=== PATIENT | male | born 1960 | race American Indian/Alaskan Native ===

== ENCOUNTER 2017-08-03 21:35 | Emergency (ER) | payer SELFPAY ==
[2017-08-03 22:33] LABS: Hematocrit 51.8 % (35.5-45.6); Hemoglobin 17.3 gm/dl (11.8-15.2); Mean Corpuscular HGB Conc 33 % (32-34); Mean Corpuscular Hemoglobin 31 pg (28-32); Mean Corpuscular Volume 94 fl (84-94); Platelet Count 235 K/mm3 (140-440); Red Blood Count 5.54 M/mm3 (3.65-5.03); Red Cell Distribution Width 14.2 % (13.2-15.2)
[2017-08-03] MEDS ORDERED: APRESOLINE IV ONE (22:40)
[2017-08-03] MEDS ORDERED: NACL 0.9% 1000 ML 1,000 ML IV ONE (22:40)
[2017-08-03] MEDS ORDERED: ZOFRAN IV ONE (22:40)
--- NOTE | 2017-08-03 22:46 | Emergency Department Report ---
HPI - General Chief Complaint: Weakness Time Seen by Provider: 08/03/17 22:12 - HPI HPI: The patient is a 56-year-old male with a history of hypertension, whom presents for evaluation of generalized weakness and gastroenteritis suggestive symptoms. The patient reports nausea, vomiting, and diarrhea since this morning, associated with severe lightheadedness as dizziness, exacerbated with standing up or exertion, improved with lying down and rests, also since this morning, 12 hours prior to my evaluation. The patient shares that he ate a landaverde melt from [email or web address] last night. The patient denies fever, headache, neck pain, paresthesias, focal motor weakness, blurry vision, ear pain, tinnitus, chest pain, hemoptysis, dyspnea, chest pain, cough, abdominal pain, confusion or altered mental status. ED Past Medical Hx - Past Medical History Hx Hypertension: Yes - Surgical History Additional Surgical History: cath cath - Social History Smoking Status: Former Smoker Substance Use Type: None - Medications Home Medications: Home Medications Medication Instructions Recorded Confirmed Last Taken Type Ondansetron [Zofran Odt] 8 mg PO TID PRN #20 tab.rapdis 08/28/14 Unknown Rx Penicillin Vk [Veetids TAB] 500 mg PO TID #20 tablet 08/28/14 07/19/16 Rx Meclizine [Antivert] 25 mg PO TID PRN #20 tablet 08/03/17 Unknown Rx Ondansetron [Zofran TAB] 4 mg PO Q8HR PRN #20 tablet 08/03/17 Unknown Rx ED Review of Systems ROS: Stated complaint: DIZZINESS Other details as noted in HPI Constitutional: reports dizziness denies: fever ENT: denies: throat or neck pain Respiratory: denies: cough, shortness of breath Cardiovascular: denies: chest pain Endocrine: denies unexplained weight loss or gain Gastrointestinal: denies: abdominal pain reports nausea Genitourinary: denies: dysuria Musculoskeletal: denies: leg swelling Skin: denies: rash Neurological: denies: headache Hematological/Lymphatic: denies: easy bleeding or easy bruising Psych: denies sadness or hopelessness Physical Exam - Physical Exam Vital Signs: Vital Signs 08/03/17 08/03/17 08/03/17 21:44 22:14 22:16 Temperature 98.3 F Pulse Rate 65 72 Respiratory 20 26 H Rate Blood Pressure 201/116 187/115 O2 Sat by Pulse 96 99 99 Oximetry 08/03/17 22:24 Temperature Pulse Rate Respiratory 18 Rate Blood Pressure O2 Sat by Pulse 99 Oximetry Physical Exam: General: well-nourished, well-developed, no acute distress Head: Normocephalic, atraumatic Eyes: normal sclera ENT: Mucous membranes are pale and dry Neck: No neck stiffness, no cervical adenopathy Respiratory: Breath sounds equal bilaterally, no wheezing, rales, or rhonchi Cardio: S1 and S2 present, no murmurs, rubs, gallops, capillary refill is delayed Abdomen: Normoactive bowel sounds, soft abdomen, no rigidity, no guarding or rebound tenderness Musc: No pitting edema Skin: No rash Neuro: no facial drooping, normal speech Psych: Normal affect ED Course Vital Signs 08/03/17 08/03/17 08/03/17 21:44 22:14 22:16 Temperature 98.3 F Pulse Rate 65 72 Respiratory 20 26 H Rate Blood Pressure 201/116 187/115 O2 Sat by Pulse 96 99 99 Oximetry 08/03/17 22:24 Temperature Pulse Rate Respiratory 18 Rate Blood Pressure O2 Sat by Pulse 99 Oximetry ED Medical Decision Making - Lab Data Result diagrams: 08/03/17 22:16 08/03/17 22:16 - Medical Decision Making The patient was seen and examined by myself. The patient is placed on a business liaison officer and continuous pulse ox. On initial evaluation, the patient was found to be in no distress. Evaluation orders were placed. The patient is given 1 L normal saline fluid bolus for treatment of dehydration, and IV Zofran for his nausea. Lab results reveal elevated RBC, hemoglobin, and hematocrit, consistent with hemoconcentration and exam findings of dehydration, and otherwise labs were grossly unremarkable. CT scan of the head is negative for acute intracranial disease process. The patient was given IV hydralazine for treatment of his hypertension. The patient was reevaluated and reported that their symptoms were markedly improved. The patient is stable for discharge with outpatient follow-up. The patient is given follow-up and return instructions. The patient expressed understanding and agreed with the plan. The patient is discharged in stable condition. Critical care attestation.: If time is entered above; I have spent that time in minutes in the direct care of this critically ill patient, excluding procedure time. ED Disposition Clinical Impression: Dehydration, Orthostatic dizziness, Hypertensive urgency, Nausea and vomiting in adult Disposition: DC-01 TO HOME OR SELFCARE Is pt being admited?: No Does the pt Need Aspirin: No Condition: Stable Instructions: Gastroenteritis (ED), Acute Nausea and Vomiting (ED), Chronic Hypertension (ED), Food Poisoning (ED), Hypertension (ED), Lightheadedness (ED) Prescriptions: Meclizine [Antivert] 25 mg PO TID PRN #20 tablet PRN Reason: Vertigo Ondansetron [Zofran TAB] 4 mg PO Q8HR PRN #20 tablet PRN Reason: Nausea Referrals: [facility] [Outside] - 3-5 Days Time of Disposition: 22:47
[2017-08-03 22:47] LABS: BUN/Creatinine Ratio 9; Blood Urea Nitrogen 9 mg/dL (9-20); Calcium 9.4 mg/dL (8.4-10.2); Hemolysis Index 11
[2017-08-03 23:14] LABS: Eosinophils % (Manual) 0 % (0.0-4.3); Ovalocytes Few; Total Cells Counted 100
--- NOTE | 2017-08-03 23:55 | Cat Scan Report ---
FINAL REPORT PROCEDURE: CT HEAD/BRAIN WO CON TECHNIQUE: Computerized tomography of the head was performed without contrast material. HISTORY: headache COMPARISON: No prior studies are available for comparison. FINDINGS: Skull and scalp: Normal. Paranasal sinuses: Normal. Ventricles and subarachnoid spaces: Normal. Cerebrum: No evidence of hemorrhage, acute infarction or mass. 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 Cerebellum and brainstem: No evidence of hemorrhage, acute infarction or mass. Vasculature: Normal. Comments: None. IMPRESSION: There is no evidence of an acute intracranial process. 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
[2017-08-04] MEDS ORDERED: NORMODYNE IV ONE (01:05)
[2017-08-04 03:24] VITALS: BP 143/91
[2017-08-04] MEDS ORDERED: ZOFRAN ODT ONE (03:28)
[2017-08-04] MEDS ORDERED: ZOFRAN ODT PO ONE (03:39)
== END 2017-08-04 03:39 | disposition home or self-care (01) ==
LOC: ED 21:35
DX: E86.0 Dehydration (principal); I16.0 Hypertensive urgency; I10 Essential (primary) hypertension; R42 Dizziness and giddiness; R11.2 Nausea with vomiting, unspecified; R19.7 Diarrhea, unspecified; Z87.891 Personal history of nicotine dependence; Z88.5 Allergy status to narcotic agent
CPT/HCPCS: 36415; 70450; 80048; 83880; 84484; 85007; 85025; 93005; 93010; 96361; 96374; 96375; 99284; J0360; J2405; J7030; Q0162

== ENCOUNTER 2019-04-24 19:35 | Emergency (ER) | payer SELFPAY ==
--- NOTE | 2019-04-24 20:43 | Event Note ---
ED Screening Note Date of service: 04/24/19 Time: 20:41 ED Screening Note: 58 y o male with pmh of HTN stopped taking meds x 1 year presents with bilateral leg swelling right greater than left This initial assessment/diagnostic orders/clinical plan/treatment(s) is/are subject to change based on patients health status, clinical progression and re- assessment by fellow clinical providers in the ED. Further treatment and workup at subsequent clinical providers discretion. Patient/guardian urged not to elope from the ED as their condition may be serious if not clinically assessed and managed. Initial orders include: labs
[2019-04-24 20:47] VITALS: BP 169/116
[2019-04-24 21:23] LABS: Basophils # (Auto) 0.1 K/mm3 (0.0-0.1); Basophils % (Auto) 0.7 % (0.0-1.8); Eosinophils # (Auto) 0.4 K/mm3 (0.0-0.4); Hematocrit 42.7 % (35.5-45.6); Hemoglobin 14.8 gm/dl (11.8-15.2); Lymphocytes # (Auto) 2.3 K/mm3 (1.2-5.4); Lymphocytes % (Auto) 18.5 % (13.4-35.0); Mean Corpuscular HGB Conc 35 % (32-34); Mean Corpuscular Volume 92 fl (84-94); Monocytes # (Auto) 0.8 K/mm3 (0.0-0.8); Monocytes % (Auto) 6.2 % (0.0-7.3); Platelet Count 215 K/mm3 (140-440); Red Blood Count 4.66 M/mm3 (3.65-5.03); Red Cell Distribution Width 14.6 % (13.2-15.2)
[2019-04-24 21:36] LABS: BUN/Creatinine Ratio 5; Blood Urea Nitrogen 6 mg/dL (9-20); Calcium 9.5 mg/dL (8.4-10.2); Hemolysis Index 7
--- NOTE | 2019-04-24 22:03 | Emergency Department Report ---
ED General Adult HPI - General Chief complaint: High BP Stated complaint: BLOOD PRESSURE Source: patient Mode of arrival: Ambulatory Limitations: No Limitations - History of Present Illness Initial comments: Is a pleasant 58-year-old male presents the emergency department the chief complaint of elevated blood pressure as well as bilateral lower extremity swelling for the past year. Patient states he had difficulty with insurance after he lost his job and has not been able to afford to go to the doctor or get his blood pressure checked or get his medications refilled. Per his chart review he had been on amlodipine and hydrochlorothiazide previously. Patient reports the swelling will start in his ankles and go up to the mid lower leg. He denies any abdominal swelling, shortness of breath, productive cough, orthopnea, fever, chills, night sweats, headache, dizziness, blurred vision chest pain, shortness of breath, or any other associated symptoms. - Related Data Previous Rx's Medication Instructions Recorded Last Taken Type Ondansetron [Zofran Odt] 8 mg PO TID PRN #20 tab.rapdis 08/28/14 Unknown Rx Penicillin Vk [Veetids TAB] 500 mg PO TID #20 tablet 08/28/14 07/19/16 Rx Meclizine [Antivert] 25 mg PO TID PRN #20 tablet 08/03/17 Unknown Rx Ondansetron [Zofran TAB] 4 mg PO Q8HR PRN #20 tablet 08/03/17 Unknown Rx amLODIPine 5 mg PO DAILY #31 tab 04/24/19 Unknown Rx hydroCHLOROthiazide [HCTZ] 25 mg PO QDAY #30 tablet 04/24/19 Unknown Rx Allergies Allergy/AdvReac Type Severity Reaction Status Date / Time codeine AdvReac Vomiting Verified 08/27/14 19:16 ED Review of Systems ROS: Stated complaint: BLOOD PRESSURE Other details as noted in HPI Comment: All other systems reviewed and negative Constitutional: denies: chills, fever Eyes: denies: eye pain, eye discharge, vision change ENT: denies: ear pain, throat pain Respiratory: denies: cough, shortness of breath, wheezing Cardiovascular: as per HPI, edema. denies: chest pain, palpitations Endocrine: no symptoms reported Gastrointestinal: denies: abdominal pain, nausea, diarrhea Genitourinary: denies: urgency, dysuria Musculoskeletal: denies: back pain, joint swelling, arthralgia Skin: denies: rash, lesions Neurological: denies: headache, weakness, paresthesias Psychiatric: denies: anxiety, depression Hematological/Lymphatic: denies: easy bleeding, easy bruising ED Past Medical Hx - Past Medical History Previous Medical History?: Yes Hx Hypertension: Yes - Surgical History Past Surgical History?: Yes Additional Surgical History: cath cath - Social History Smoking Status: Current Every Day Smoker Substance Use Type: None - Medications Home Medications: Home Medications Medication Instructions Recorded Confirmed Last Taken Type Ondansetron [Zofran Odt] 8 mg PO TID PRN #20 tab.rapdis 08/28/14 Unknown Rx Penicillin Vk [Veetids TAB] 500 mg PO TID #20 tablet 08/28/14 07/19/16 Rx Meclizine [Antivert] 25 mg PO TID PRN #20 tablet 08/03/17 Unknown Rx Ondansetron [Zofran TAB] 4 mg PO Q8HR PRN #20 tablet 08/03/17 Unknown Rx amLODIPine 5 mg PO DAILY #31 tab 04/24/19 Unknown Rx hydroCHLOROthiazide [HCTZ] 25 mg PO QDAY #30 tablet 04/24/19 Unknown Rx ED Physical Exam - General Limitations: No Limitations General appearance: alert, in no apparent distress - Head Head exam: Present: atraumatic, normocephalic - Eye Eye exam: Present: normal appearance, PERRL, EOMI Pupils: Present: normal accommodation - ENT ENT exam: Present: normal exam, normal orophraynx, mucous membranes moist - Neck Neck exam: Present: normal inspection, full ROM. Absent: tenderness, meningismus - Respiratory Respiratory exam: Present: normal lung sounds bilaterally. Absent: respiratory distress, wheezes, rales, rhonchi, stridor - Cardiovascular Cardiovascular Exam: Present: regular rate, normal rhythm, normal heart sounds. Absent: systolic murmur, diastolic murmur, rubs, gallop - GI/Abdominal GI/Abdominal exam: Present: soft, normal bowel sounds. Absent: distended, tenderness, guarding - Rectal Rectal exam: Present: deferred - Extremities Exam Extremities exam: Present: normal inspection, full ROM, pedal edema (1+ pitting edema bilaterally extending from the ankles to the mid lower legs. No posterior calf tenderness. Negative Homans sign bilaterally.) - Back Exam Back exam: Present: normal inspection - Neurological Exam Neurological exam: Present: alert, oriented X3 - Psychiatric Psychiatric exam: Present: normal affect, normal mood - Skin Skin exam: Present: warm, dry, intact, normal color. Absent: rash ED Course Vital Signs 04/24/19 04/24/19 19:50 20:45 Temperature 98.7 F Pulse Rate 74 71 Respiratory 20 Rate Blood Pressure 187/114 Blood Pressure 169/116 [Left] O2 Sat by Pulse 97 Oximetry ED Medical Decision Making - Lab Data Result diagrams: 04/24/19 20:57 04/24/19 20:57 Lab Results 04/24/19 04/24/19 Range/Units 20:57 20:57 WBC 12.4 H (4.5-11.0) K/mm3 RBC 4.66 (3.65-5.03) M/mm3 Hgb 14.8 (11.8-15.2) gm/dl Hct 42.7 (35.5-45.6) % MCV 92 (84-94) fl MCH 32 (28-32) pg MCHC 35 H (32-34) % RDW 14.6 (13.2-15.2) % Plt Count 215 (140-440) K/mm3 Lymph % (Auto) 18.5 (13.4-35.0) % [place] % (Auto) 6.2 (0.0-7.3) % Eos % (Auto) 3.0 (0.0-4.3) % Baso % (Auto) 0.7 (0.0-1.8) % Lymph # 2.3 (1.2-5.4) K/mm3 [place] # 0.8 (0.0-0.8) K/mm3 Eos # 0.4 (0.0-0.4) K/mm3 Baso # 0.1 (0.0-0.1) K/mm3 Seg Neutrophils % 71.6 H (40.0-70.0) % Seg Neutrophils # 8.9 H (1.8-7.7) K/mm3 Sodium 142 (137-145) mmol/L Potassium 3.9 (3.6-5.0) mmol/L Chloride 103.5 (98-107) mmol/L Carbon Dioxide 25 (22-30) mmol/L Anion Gap 17 mmol/L BUN 6 L (9-20) mg/dL Creatinine 1.1 (0.8-1.5) mg/dL Estimated GFR > 60 ml/min BUN/Creatinine Ratio 5 % Glucose 56 L (75-100) mg/dL Calcium 9.5 (8.4-10.2) mg/dL - Medical Decision Making Patient is nontoxic in no acute distress. Vitals showed elevated blood pressure and the patient has not had his blood pressure medications and nearly 2 years. Patient had no symptoms otherwise, normal nonfocal neurologic exam and no complaints of chest pain, shortness of breath, or any other associated symptoms. I will refill the patient's blood pressure medication and recommended follow- up with [facility] for Her blood pressure management. Patient was given strict return precautions for any changing or worsening symptoms. He verbalizes understanding of the diagnosis, treatment plan and follow-up instructions on his questions were answered. - Differential Diagnosis chf, renal failure, uncontrolled HTN Critical care attestation.: If time is entered above; I have spent that time in minutes in the direct care of this critically ill patient, excluding procedure time. ED Disposition Clinical Impression: Hypertension Qualifiers: Hypertension type: essential hypertension Qualified Code(s): I10 - Essential (primary) hypertension Disposition: DC-01 TO HOME OR SELFCARE Is pt being admited?: No Does the pt Need Aspirin: No Condition: Stable Instructions: DASH Eating Plan (ED), Hypertension (ED) Prescriptions: amLODIPine 5 mg PO DAILY #31 tab hydroCHLOROthiazide [HCTZ] 25 mg PO QDAY #30 tablet Time of Disposition: 22:21
== END 2019-04-24 22:30 | disposition home or self-care (01) ==
LOC: ED 19:35
DX: I10 Essential (primary) hypertension (principal); F17.200 Nicotine dependence, unspecified, uncomplicated; Z88.5 Allergy status to narcotic agent; Z79.899 Other long term (current) drug therapy
CPT/HCPCS: 36415; 80048; 85025; 99283

== ENCOUNTER 2021-03-24 13:19 | Emergency (ER) | payer SELFPAY ==
--- NOTE | 2021-03-24 13:46 | Emergency Department Report ---
ED General Adult HPI - General Chief complaint: High BP Stated complaint: BLOOD PRESSURE Time Seen by Provider: 03/24/21 13:38 Source: patient Mode of arrival: Ambulatory Limitations: No Limitations - History of Present Illness Initial comments: Chief complaint: My blood pressure was high yesterday HPI: This is a 60-year-old male with history of hypertension who presents with elevated blood pressure. He tried to obtain refill from [facility] pharmacy. He ran out of blood pressure medicine 3 months ago. He does not have a primary physician. He denies headache, blurry vision, chest pain, vomiting. He does not have any symptoms at this time. -: Gradual, Last night Severity scale (0 -10): 0 Consistency: now resolved Improves with: none Worsens with: none Associated Symptoms: denies other symptoms Treatments Prior to Arrival: none - Related Data Previous Rx's Medication Instructions Recorded Last Taken Type Ondansetron [Zofran Odt] 8 mg PO TID PRN #20 tab.rapdis 08/28/14 Unknown Rx Penicillin Vk [Veetids TAB] 500 mg PO TID #20 tablet 08/28/14 07/19/16 Rx Meclizine [Antivert] 25 mg PO TID PRN #20 tablet 08/03/17 Unknown Rx Ondansetron [Zofran TAB] 4 mg PO Q8HR PRN #20 tablet 08/03/17 Unknown Rx amLODIPine 5 mg PO DAILY 90 Days #90 tab 03/24/21 Unknown Rx Allergies Allergy/AdvReac Type Severity Reaction Status Date / Time codeine AdvReac Vomiting Verified 03/24/21 13:24 ED Review of Systems ROS: Stated complaint: BLOOD PRESSURE Other details as noted in HPI Comment: All other systems reviewed and negative Constitutional: denies: chills, fever, malaise Respiratory: denies: cough, shortness of breath Cardiovascular: denies: chest pain Gastrointestinal: denies: abdominal pain, nausea, vomiting ED Past Medical Hx - Past Medical History Previous Medical History?: Yes Hx Hypertension: Yes - Surgical History Past Surgical History?: Yes Additional Surgical History: cath cath - Social History Smoking Status: Current Every Day Smoker Substance Use Type: None - Medications Home Medications: Home Medications Medication Instructions Recorded Confirmed Last Taken Type Ondansetron [Zofran Odt] 8 mg PO TID PRN #20 tab.rapdis 08/28/14 Unknown Rx Penicillin Vk [Veetids TAB] 500 mg PO TID #20 tablet 08/28/14 07/19/16 Rx Meclizine [Antivert] 25 mg PO TID PRN #20 tablet 08/03/17 Unknown Rx Ondansetron [Zofran TAB] 4 mg PO Q8HR PRN #20 tablet 08/03/17 Unknown Rx amLODIPine 5 mg PO DAILY 90 Days #90 tab 03/24/21 Unknown Rx ED Physical Exam - General Limitations: No Limitations General appearance: alert, in no apparent distress, other (Pleasant smiling appears comfortable) - Head Head exam: Present: atraumatic, normocephalic - Eye Eye exam: Present: normal appearance - ENT ENT exam: Present: mucous membranes moist - Neck Neck exam: Present: normal inspection - Respiratory Respiratory exam: Present: normal lung sounds bilaterally. Absent: respiratory distress, wheezes, rales, rhonchi - Cardiovascular Cardiovascular Exam: Present: regular rate, normal rhythm, normal heart sounds. Absent: systolic murmur, diastolic murmur, rubs, gallop - GI/Abdominal GI/Abdominal exam: Present: soft, normal bowel sounds. Absent: distended, tenderness, guarding - Rectal Rectal exam: Present: deferred - Extremities Exam Extremities exam: Present: normal inspection - Neurological Exam Neurological exam: Present: alert, oriented X3 - Psychiatric Psychiatric exam: Present: normal affect, normal mood - Skin Skin exam: Present: warm, dry, intact, normal color. Absent: rash ED Course Vital Signs 03/24/21 13:27 Temperature 98.2 F Pulse Rate 81 Respiratory 20 Rate Blood Pressure 155/107 O2 Sat by Pulse 99 Oximetry ED Medical Decision Making - Medical Decision Making Asymptomatic hypertension: Blood pressure mildly elevated. Prescribed 90 days of amlodipine. Patient given referral to outpatient medicine physician Critical care attestation.: If time is entered above; I have spent that time in minutes in the direct care of this critically ill patient, excluding procedure time. ED Disposition Clinical Impression: Hypertension Disposition: 01 HOME / SELF CARE / HOMELESS Is pt being admited?: No Does the pt Need Aspirin: No Condition: Stable Instructions: Hypertension (ED), Hypertension, Adult, [id number] Prescriptions: amLODIPine 5 mg PO DAILY 90 Days #90 tab Referrals: ABIGAIL MEADOWS MD [Staff Physician] - 3-5 Days
[2021-03-24 13:57] VITALS: BP 166/107
== END 2021-03-24 14:00 | disposition home or self-care (01) ==
LOC: ED 13:19
DX: I10 Essential (primary) hypertension (principal); F17.200 Nicotine dependence, unspecified, uncomplicated; Z88.5 Allergy status to narcotic agent; Z79.899 Other long term (current) drug therapy
CPT/HCPCS: 99281